=== PATIENT | female | born 1995 | race Caucasian/White ===

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

== ENCOUNTER → 2017-02-04 | Outpatient (CLI) | payer BC ==
[2017-02-04 10:54] LABS: Anion Gap 10 mmol/L; Blood Urea Nitrogen 13 mg/dL (7-17); Carbon Dioxide 27 mmol/L (22-30); Chloride 105 mmol/L (98-107); Non-African American GFR(MDRD) >60 (>60 ml/min/1.73 sqM); Potassium 3.8 mmol/L (3.5-5.1); Sodium 142 mmol/L (137-145)
[2017-02-04 11:02] LABS: CH 31.1; CHCM 34.1; HCT 38.9 % (34.0-46.0); HDW 2.48; HGB 12.6 gm/dL (11.4-16.0); MCH 29.7 pg (25.0-35.0); MCHC 32.4 g/dL (31.0-37.0); MCV 91.7 fL (80.0-100.0); Mean Platelet Volume 7.1; RBC 4.24 m/uL (3.80-5.40); RDW 12.9 % (11.5-15.5); WBC 4.8 k/uL (4.0-11.0)
== END | disposition home or self-care (01) ==
LOC: LABWHC1 10:05
PROVIDERS: ATTEND Obstetrics & Gynecology
DX: Z86.59 Personal history of other mental and behavioral disorders (principal)
CPT/HCPCS: 36415; 80051; 82306; 82565; 84520; 85027

== ENCOUNTER → 2017-05-14 | Outpatient (CLI) | payer BC | END | disposition home or self-care (01) | LOC: LABWHC1 09:43 | PROVIDERS: ATTEND Obstetrics & Gynecology | DX: Z34.00 Encounter for supervision of normal first pregnancy, unspecified trimester (principal) | CPT/HCPCS: 36415; 84702 ==

== ENCOUNTER 2019-06-13 12:41 | Emergency (ER) | payer BC ==
[2019-06-13 13:20] VITALS: BP 130/77; PULSE 76; RESP 16; TEMP 98.2
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
--- NOTE | 2019-06-13 14:03 | XR ---
EXAMINATION TYPE: XR calcaneus 2V LT , 2 VIEWS DATE OF EXAM ORDERED: 06/13/2019 HISTORY: heel injury. COMPARISON: None. FINDINGS: The calcaneus has a normal appearance. No fracture is seen. Boehler's angle is maintained. IMPRESSION: NORMAL CALCANEUS.
--- NOTE | 2019-06-13 14:03 | XR ---
EXAMINATION TYPE: XR foot complete LT , 3 VIEWS DATE OF EXAM ORDERED: 06/13/2019 HISTORY: heel injury. COMPARISON: None. FINDINGS: No fracture, dislocation or other osseous lesion is seen. IMPRESSION: NORMAL LEFT FOOT.
== END 2019-06-13 14:34 | disposition home or self-care (01) ==
LOC: EC 12:41
DX: S93.602A Unspecified sprain of left foot, initial encounter (principal); W23.0XXA Caught, crushed, jammed, or pinched between moving objects, initial encounter
CPT/HCPCS: 29515; 99284